=== PATIENT | female | born 1965 | race Caucasian/White ===

== ENCOUNTER 2016-11-22 22:49 | Inpatient (IN) | payer OTHER ==
[~2016-11-22] VITALS: Ht 170.2 cm; Wt 55.0 kg
[2016-11-22 22:51] VITALS: BP 156/63; PULSE 111; RESP 20; TEMP 99.4; O2SAT 95
[2016-11-23] VITALS (8 sets, daily range): BP systolic 97–145; BP diastolic 58–84; PULSE 83–116; RESP 15–23; TEMP 97.6–99.9; O2SAT 94–96
[2016-11-23] MEDS ORDERED: predniSONE 20 MG TAB PO ONE (02:00)
[2016-11-23] MEDS ORDERED: RESP: ALBUTEROL 2.5 MG/IPRATROPIUM 0.5 MG NEB (SCH) NEB ONE (02:00)
[2016-11-23] MEDS ORDERED: SODIUM CHLORIDE 0.9% FLUSH 10 ML FLUSH IVF PRN (02:00)
--- NOTE | 2016-11-23 02:11 | PD ---
HPI Chief Complaint: Cold / Flu Symptoms Time Seen by Provider: 01:50 Travel History International Travel<30 days: No Contact w/Intl Traveler<30days: No Traveled to known affect area: No History of Present Illness HPI Patient is a 51-year-old female presents emergency Department with a week's worth history of cough congestion. Patient states she is a smoker and has a history of reactive airway disease has been taking albuterol at home with minimal relief. She does state that she just came down from [place] for a family affair and came by approximate 4 days ago. Denies any fevers. She has been on antibiotics and steroids for this. No chest pain abdominal pain no nausea vomiting or rash. PFSH Past Medical History Respiratory: Yes (asthma) Past Surgical History Surgical History: No Previous Surgery Social History Tobacco Use: Yes Allergies-Medications (Allergen,Severity, Reaction): Coded Allergies: No Known Allergies (Unverified , 11/22/16) Reported Meds & Prescriptions Reported Meds & Active Scripts Active Reported Advair Diskus Inh (Fluticasone-Salmeterol Inh) 100-50 Mcg/Blist Aer 1 Puff INH BID Rinse mouth after use. Duoneb (Ipratropium-Albuterol Neb) 0.5-2.5 Mg/3 Ml Neb 1 Nebule INH Q6HR NEB Ventolin Hfa 18 GM Inh (Albuterol Sulfate) 90 Mcg/Act Aer 2 Puff INH Q4-6H PRN Review of Systems Except as stated in HPI: all other systems reviewed are Neg Physical Exam Narrative GENERAL: Well-developed well-nourished no apparent distress SKIN: Focused skin assessment warm/dry. HEAD: Atraumatic. Normocephalic. EYES: Pupils equal and round. No scleral icterus. No injection or drainage. ENT: No nasal bleeding or discharge. Mucous membranes pink and moist. NECK: Trachea midline. No JVD. CARDIOVASCULAR: Regular rhythm with tachycardia.. No murmur appreciated. RESPIRATORY: No accessory muscle use. Intrauterine extra wheezing with adequate air entry.. Breath sounds equal bilaterally. No increased work of breathing GASTROINTESTINAL: Abdomen soft, non-tender, nondistended. Hepatic and splenic margins not palpable. MUSCULOSKELETAL: No obvious deformities. No clubbing. No cyanosis. No edema. NEUROLOGICAL: Awake and alert. No obvious cranial nerve deficits. Motor grossly within normal limits. Normal speech. PSYCHIATRIC: Appropriate mood and affect; insight and judgment normal. Data Data Last Documented VS Vital Signs Date Time Temp Pulse Resp B/P Pulse Ox O2 Delivery O2 Flow Rate FiO2 11/23/16 03:00 99.9 116 16 143/84 96 Nasal Cannula 2 Orders Electrocardiogram (11/23/16 01:56) Complete Blood Count With Diff (11/23/16 01:56) Comprehensive Metabolic Panel (11/23/16 01:56) Magnesium (Mg) (11/23/16 01:56) Prothrombin Time / Inr (Pt) (11/23/16 01:56) Act Partial Throm Time (Ptt) (11/23/16 01:56) Troponin I (11/23/16 01:56) Ecg Monitoring (11/23/16 01:56) Iv Access Insert/Monitor (11/23/16 01:56) Oximetry (11/23/16 01:56) Oxygen Administration (11/23/16 01:56) Sodium Chloride 0.9% Flush (Ns Flush) (11/23/16 02:00) Ct Pulmonary Angiogram (11/23/16 01:56) Albuterol-Ipratropium Neb (Duoneb Neb) (11/23/16 02:00) Prednisone (Deltasone) (11/23/16 02:00) Iohexol 350 Inj (Omnipaque 350 Inj) (11/23/16 02:17) Lactic Acid (11/23/16 02:46) Blood Culture (11/23/16 02:46) Sodium Chlor 0.9% 1000 Ml Inj (Ns 1000 M (11/23/16 03:00) Sodium Chlor 0.9% 1000 Ml Inj (Ns 1000 M (11/23/16 03:00) Levofloxacin 750 Mg Premix Inj (Levaquin (11/23/16 03:00) Admit Order (Ed Use Only) (11/23/16 ) Labs Laboratory Tests Test 11/23/16 11/23/16 02:00 03:20 White Blood Count 16.5 TH/MM3 Red Blood Count 4.91 MIL/MM3 Hemoglobin 10.8 GM/DL Hematocrit 34.3 % Mean Corpuscular Volume 69.8 FL Mean Corpuscular Hemoglobin 22.1 PG Mean Corpuscular Hemoglobin 31.6 % Concent Red Cell Distribution Width 15.6 % Platelet Count 257 TH/MM3 Mean Platelet Volume 9.0 FL Neutrophils (%) (Auto) 80.0 % Lymphocytes (%) (Auto) 11.0 % Monocytes (%) (Auto) 7.3 % Eosinophils (%) (Auto) 1.3 % Basophils (%) (Auto) 0.4 % Neutrophils # (Auto) 13.2 TH/MM3 Lymphocytes # (Auto) 1.8 TH/MM3 Monocytes # (Auto) 1.2 TH/MM3 Eosinophils # (Auto) 0.2 TH/MM3 Basophils # (Auto) 0.1 TH/MM3 CBC Comment DIFF FINAL Differential Comment Prothrombin Time 10.0 SEC Prothromb Time International 0.9 RATIO Ratio Activated Partial 32.7 SEC Thromboplast Time Sodium Level 134 MEQ/L Potassium Level 4.0 MEQ/L Chloride Level 100 MEQ/L Carbon Dioxide Level 23.9 MEQ/L Anion Gap 10 MEQ/L Blood Urea Nitrogen 5 MG/DL Creatinine 0.43 MG/DL Estimat Glomerular Filtration 155 ML/MIN Rate Random Glucose 102 MG/DL Calcium Level 9.3 MG/DL Magnesium Level 2.1 MG/DL Total Bilirubin 1.1 MG/DL Aspartate Amino Transf 18 U/L (AST/SGOT) Alanine Aminotransferase 26 U/L (ALT/SGPT) Alkaline Phosphatase 109 U/L Troponin I LESS THAN 0.02 NG/ML Total Protein 7.9 GM/DL Albumin 3.7 GM/DL Lactic Acid Level 1.1 mmol/L MDM Medical Decision Making Medical Screen Exam Complete: Yes Emergency Medical Condition: Yes Differential Diagnosis Sepsis, pneumonia, bronchitis, COPD exacerbation, PE. Narrative Course Patient was roomed in the emergency department, she does have Sirs criteria heart rate between 115 and 125 bpm as well as white blood cell count of 16. On obtaining the patient's second Sirs criteria are white blood cell count of 16, 000 lactic acid was obtained as well as blood culture sent and she was started on Levaquin. The patient has been on azithromycin recently for possible bronchitis. Her CAT scan shows: Last [address] Angiography 11/23/16 0156 Signed Impressions: Service Date/Time: Wednesday, November 23, 2016 02:09 - CONCLUSION: 1. Negative for pulmonary embolus. 2. Multifocal airspace consolidation in the lungs as above associated with peribronchial thickening as well as distal airway disease and minimal bronchiolectasis. Differential diagnosis includes multifocal bronchopneumonia or possibly a chronic low-grade atypical mycobacterial disease. Nemesio Covarrubias MD Lactic acid is 1. Discussed with the patient diagnosis of sepsis with pneumonia and recommended inpatient treatment and she is agreeable. Discussed with Dr. Chiu. Diagnosis Primary Impression: Sepsis Qualified Code: A41.9 - Sepsis, due to unspecified organism Additional Impression: CAP (community acquired pneumonia) Admitting Information Admitting Physician Requests: Admit Condition: Stable Gigi Gordillo MD November 23, 2016 02:11
[2016-11-23] MEDS ORDERED: IOHEXOL 350 MG/ML 10 ML VIAL (for RAD DIAG) IV ONE (02:17)
[2016-11-23 02:26] LABS: AUTOMATED NEUTROPHIL # 13.2 TH/MM3 (1.8-7.7); BASOPHIL # 0.1 TH/MM3 (0-0.2); BASOPHIL % 0.4 % (0.0-2.0); EOSINOPHIL # 0.2 TH/MM3 (0-0.4); EOSINOPHIL % 1.3 % (0.0-4.0); HEMATOCRIT 34.3 % (35.0-46.0); HEMO FLAGS DIFF FINAL; LYMPHOCYTE # 1.8 TH/MM3 (1.0-4.8); MEAN CELL VOLUME 69.8 FL (80.0-100.0); MEAN CORPUSCULAR HEMOGLOBIN 22.1 PG (27.0-34.0); MEAN CORPUSCULAR HGB CONC 31.6 % (32.0-36.0); MONO % 7.3 % (0.0-8.0); PLATELET COUNT 257 TH/MM3 (150-450); RED BLOOD COUNT 4.91 MIL/MM3 (4.00-5.30); RED CELL DISTRIBUTION WIDTH 15.6 % (11.6-17.2); WHITE BLOOD COUNT 16.5 TH/MM3 (4.0-11.0)
[2016-11-23 02:37] LABS: APTT (PATIENT) 32.7 SEC (24.3-30.1); INTERNATIONAL NORMALIZED RATIO 0.9 RATIO
[2016-11-23 02:40] LABS: ALT (GPT) 26 U/L (10-53); ANION GAP 10 MEQ/L (5-15); AST (GOT) 18 U/L (15-37); BICARBONATE 23.9 MEQ/L (21.0-32.0); BLOOD UREA NITROGEN 5 MG/DL (7-18); CHLORIDE 100 MEQ/L (98-107); GLOMERULAR FILTRATION RATE 155 ML/MIN (>89); MAGNESIUM 2.1 MG/DL (1.5-2.5); SODIUM (NA) 134 MEQ/L (136-145)
--- NOTE | 2016-11-23 02:43 | RADRPT ---
EXAM DATE/TIME: 11/23/2016 02:09 [facility] COMPARISON: No previous studies available for comparison. INDICATIONS : Short of breath IV CONTRAST: 65 cc Omnipaque 350 (iohexol) IV RADIATION DOSE: 6.79 CTDIvol (mGy) MEDICAL HISTORY : Asthma. SURGICAL HISTORY : None. ENCOUNTER: Initial ACUITY: 1 week PAIN SCALE: 0/10 LOCATION: chest TECHNIQUE: Volumetric scanning of the chest was performed using a pulmonary embolism protocol MIP images were re constructed. Using automated exposure control and adjustment of the mA and/or kV according to patien t size, radiation dose was kept as low as reasonably achievable to obtain optimal diagnostic quality images. FINDINGS: No filling defects identified to suggest pulmonary embolus. There is multifocal air space consolidati on in the lungs including anterior segment right upper lobe, lateral segment right middle lobe and li ngula. There is also associated peribronchial thickening as well as some distal bronchiolectasis and distal mucoid plugging of airways. Peribronchial thickening is especially prominent in both lower lob es. No pleural or pericardial effusion. Borderline enlarged hilar and mediastinal lymph nodes. No acu te findings in the upper abdomen. CONCLUSION: 1. Negative for pulmonary embolus. 2. Multifocal airspace consolidation in the lungs as above associated with peribronchial thickening a s well as distal airway disease and minimal bronchiolectasis. Differential diagnosis includes multifo shabbir bronchopneumonia or possibly a chronic low-grade atypical mycobacterial disease. Nemesio Covarrubias MD on November 23, 2016 at 2:36 Board Certified Radiologist. This report was verified electronically.
[2016-11-23 02:44] LABS: ALKALINE PHOSPHATASE 109 U/L (45-117); TOTAL BILIRUBIN ADULT 1.1 MG/DL (0.2-1.0)
[2016-11-23] MEDS ORDERED: LEVOFLOXACIN 750 MG PREMIX INJ 150 ML IV ONE (03:00)
[2016-11-23] MEDS ORDERED: SODIUM CHLOR 0.9% 1000 ML INJ 1,000 ML IV ONE ×2 (03:00)
[2016-11-23] MEDS ORDERED: IPRASOL INH (03:52)
[2016-11-23] MEDS ORDERED: ADVA100A INH (03:52)
[2016-11-23] MEDS ORDERED: VENTAER INH (03:52)
[2016-11-23] MEDS ORDERED: NALOXONE HCL 0.4 MG/ML AMP IV PRN (04:45)
[2016-11-23] MEDS ORDERED: SODIUM CHLORIDE 0.9% FLUSH 10 ML FLUSH IV FLUSH PRN (04:45)
[2016-11-23] MEDS: SODIUM CHLOR 0.9% 1000 ML INJ 1,000 ML IV SCH ×2 (06:29→16:07)
[2016-11-23] MEDS ORDERED: ACETAMINOPHEN 325 MG TAB PO PRN (12:15)
[2016-11-23] MEDS: SODIUM CHLORIDE 0.9% FLUSH 10 ML FLUSH IV FLUSH SCH ×2 (12:27→20:39)
--- NOTE | 2016-11-23 13:35 | PD.ID.CON ---
History of Present Illness Service ID Consult Requested By Dr Bray Reason for Consult sepsis , PNA Primary Care Physician Non-Staff Diagnoses: History of Present Illness 51-year-old tobacco + female presents emergency Department with a week's worth history of cough congestion. She is visiting from [place] approximate 4 days ago. Denies any fevers, but low grade fevers docuimented in ER T amx 99.9 Her CTA is showing multifocal airspace consolidation in the lungs as above associated with peribronchial thickening as well as distal airway disease and minimal bronchiolectasis. Differential diagnosis includes multifocal bronchopneumonia or possibly a chronic low-grade atypical mycobacterial disease . She has been on antibiotics (augmentin, azithromycin) and steroids for the above problem with temporal improvement She was never diagnosed, tested or knowlinglyu exposed to TB HIV negative test > 5 yrs ago No chest pain abdominal pain no nausea vomiting or rash. + some weight loss + productive cough, yellow sputum, no hemoptysis Review of Systems Constitutional: COMPLAINS OF: Fever, Weight loss, Night Sweats Respiratory: COMPLAINS OF: Cough, Sputum production, Shortness of breath Except as stated in HPI: all other systems reviewed are Neg Past Family Social History Allergies: Coded Allergies: No Known Allergies (Unverified , 11/22/16) Past Medical History COPD Asthme recurrent PNAs Past Surgical History none Active Ordered Medications Medications where reviewed in EMR Antibiotics Include: levaquine Family History lung Ca Social History + Tobacco. 1 PPD + occ ETOH. No Illicit Drugs. no foreign travel Physical Exam Vital Signs Vital Signs Date Time Temp Pulse Resp B/P Pulse Ox O2 Delivery O2 Flow Rate FiO2 11/23/16 11:18 99.2 86 15 110/61 95 11/23/16 07:37 99.9 91 15 126/58 96 11/23/16 06:31 97.6 97 22 110/72 96 11/23/16 06:00 80 20 145/77 95 Nasal Cannula 2 11/23/16 03:00 99.9 116 16 143/84 96 Nasal Cannula 2 11/23/16 03:00 96 Nasal Cannula 2.00 11/23/16 02:00 95 Nasal Cannula 2 11/23/16 01:00 108 24 95 Room Air 11/22/16 22:51 99.4 111 20 156/63 95 Room Air Physical Exam CONSTITUTIONAL/GENERAL: This is an adequately nourished patient, in no apparent distress. TUBES/LINES/DRAINS: SKIN: No jaundice, rashes, or lesions.Skin temperature appropriate. Not diaphoretic. HEAD: Atraumatic. Normocephalic. EYES: Pupils equal and round and reactive. Extraocular motions intact. No scleral icterus. No injection or drainage. Fundi not examined. ENT: Hearing grossly normal. Nose without bleeding or purulent drainage. Oral mucosae without visible erythema, exudates, masses, or lesions. NECK: Trachea midline. Supple, nontender. CARDIOVASCULAR: Regular rate and rhythm without murmurs, gallops, or rubs. No JVD. Peripheral pulses symmetric. RESPIRATORY/CHEST: Symmetric, unlabored respirations. Clear to auscultation. Breath sounds equal bilaterally. No wheezes, rales, or rhonchi. GASTROINTESTINAL: Abdomen soft, non-tender, nondistended. No hepato-splenomegaly , or palpable masses. No guarding. Bowel sounds present. GENITOURINARY: Without palpable bladder distension MUSCULOSKELETAL: Extremities without clubbing, cyanosis, or edema. No joint tenderness or effusion noted. No calf tenderness. No mottling or clubbing. LYMPHATICS: No palpable cervical axillae or supraclavicular adenopathy. NEUROLOGICAL: Awake and alert. Motor and sensory grossly within normal limits. Follows commands. Normal speech Moves all extremities. PSYCHIATRIC: No obvious anxiety/depression. no apparent hallucinations or other psychotic thought process. Laboratory Laboratory Tests Test 11/23/16 11/23/16 02:00 03:20 White Blood Count 16.5 Red Blood Count 4.91 Hemoglobin 10.8 Hematocrit 34.3 Mean Corpuscular Volume 69.8 Mean Corpuscular Hemoglobin 22.1 Mean Corpuscular Hemoglobin 31.6 Concent Red Cell Distribution Width 15.6 Platelet Count 257 Mean Platelet Volume 9.0 Neutrophils (%) (Auto) 80.0 Lymphocytes (%) (Auto) 11.0 Monocytes (%) (Auto) 7.3 Eosinophils (%) (Auto) 1.3 Basophils (%) (Auto) 0.4 Neutrophils # (Auto) 13.2 Lymphocytes # (Auto) 1.8 Monocytes # (Auto) 1.2 Eosinophils # (Auto) 0.2 Basophils # (Auto) 0.1 CBC Comment DIFF FINAL Differential Comment Prothrombin Time 10.0 Prothromb Time International 0.9 Ratio Activated Partial 32.7 Thromboplast Time Sodium Level 134 Potassium Level 4.0 Chloride Level 100 Carbon Dioxide Level 23.9 Anion Gap 10 Blood Urea Nitrogen 5 Creatinine 0.43 Estimat Glomerular Filtration 155 Rate Random Glucose 102 Calcium Level 9.3 Magnesium Level 2.1 Total Bilirubin 1.1 Aspartate Amino Transf 18 (AST/SGOT) Alanine Aminotransferase 26 (ALT/SGPT) Alkaline Phosphatase 109 Troponin I LESS THAN 0.02 Total Protein 7.9 Albumin 3.7 Lactic Acid Level 1.1 Date/Time Procedure Status Source Growth 11/23/16 03:20 Aerobic Blood Culture Received Blood Peripheral Pending 11/23/16 03:20 Anaerobic Blood Culture Received Blood Peripheral Pending Result Diagram: 11/23/16 0200 11/23/[address] Angiography 11/23/16 0156 Signed Impressions: Service Date/Time: Wednesday, November 23, 2016 02:09 - CONCLUSION: 1. Negative for pulmonary embolus. 2. Multifocal airspace consolidation in the lungs as above associated with peribronchial thickening as well as distal airway disease and minimal bronchiolectasis. Differential diagnosis includes multifocal bronchopneumonia or possibly a chronic low-grade atypical mycobacterial disease. Nemesio Covarrubias MD Assessment and Plan Assessment and Plan Suspected atypical mycobacterial PNA in a pt with heavy tobacco use Recurrent PNAs with temporaral improvement on azithromycin Low risk factors fro TB exposure by history Hypochromal anemia - cont levaquine - routinr/AFB sputum clx dw radiologist Dr Diaz: no findings sugg of TB, but possibly PNA, including atypical NTM, ? cancer Discussed Condition With Juliet Browning MD November 23, 2016 13:35
--- NOTE | 2016-11-23 14:18 | HHI.HP ---
HPI Service [facility] Primary Care Physician Non-Staff Admission Diagnosis Sepsis, PNA Diagnoses: Chief Complaint: shortness of breath, cough Travel History International Travel<30 Days: No Contact w/Intl Traveler <30 Da: No Traveled to Known Affected Are: No Sepsis Criteria SIRS Criteria (2 or more): Heart rate over 90, WBC > 87274, < 4000 or > 10% bands Sepsis Criteria (SIRS+source): Infect source susp/known Criteria Outcome: Meets sepsis criteria History of Present Illness Written by Kimberley Conner, acting as scribe for Dr. Davila on 11/23/16 at 14: 18. 51-year-old female with history of COPD and thalassemia minor presents with a 5 day history of shortness of breath and cough. The patient reports she recently travelled from [place] to [place] this past Saturday 11/18 then shortly after her arrival she developed shortness of breath and cough productive of bright green sputum. She also reports subjective fevers and chills. She's been using her Ventolin inhaler and nebulizer without much relief. She has also been without her Advair since Saturday. She reports intractable cough and has now developed a sore throat secondary to the cough. The patient reports some unintentional weight loss with 40lbs over the past 2 years. Denies any chest pain, leg pain or swelling. She reports occasional diarrhea and stool incontinence during coughing fits, otherwise denies any abdominal pain, dysuria, or nausea/ vomiting. She is post-menopausal for 1 year now. She denies any contact with anyone known with TB and denies any sick contacts. has a chronic cough secondary to emphysema/COPD. PCP is Dr. Hall in [place], [place]. She also sees a civil cadd technician in [place]. Review of Systems Except as stated in HPI: all other systems reviewed are Neg Past Family Social History Past Medical History Thalassemia minor COPD Past Surgical History None. Reported Medications Goody's powder once every few days Advair Ventolin Albuterol nebulizer Allergies: Coded Allergies: No Known Allergies (Unverified , 11/22/16) Active Ordered Medications Current Medications Medications (Trade) Dose Ordered Sig/Maren Route Start Time Stop Time Status Last Admin (NS 1000 ml Inj) 1,000 ml @ 100 mls/hr Q10H IV 11/23/16 04:34 11/23/16 06:29 (NS Flush) 2 ml UNSCH PRN IV FLUSH 11/23/16 04:45 (NS Flush) 2 ml BID IV FLUSH 11/23/16 09:00 11/23/16 12:27 Naloxone HCl 0.4 mg 0.4 mg UNSCH PRN IV 11/23/16 04:45 (Levaquin 750 Mg Premix Inj) 150 ml @ 100 mls/hr Q24H IV 11/24/16 03:00 (Tylenol) 650 mg Q6H PRN PO 11/23/16 12:15 11/23/16 12:23 ([place]y [place] 5-325 Mg) 1 tab Q4H PRN PO 11/23/16 12:15 Family History Father with diabetes, hypertension, and heart disease (first [place] in his 40s), in his 60s Mother fairly healthy, living Social History Smokes tobacco 1/2 to 1 PPD since she was a teenager (stopped for 10years previously) Drinks alcohol, approximately 40ounces of beer daily (~4cans) Denies any illicit drug use Employed - Sprays chemicals and fertilizers on lawns Physical Exam Vital Signs Vital Signs Date Time Temp Pulse Resp B/P Pulse Ox O2 Delivery O2 Flow Rate FiO2 11/23/16 11:18 99.2 86 15 110/61 95 11/23/16 07:37 99.9 91 15 126/58 96 11/23/16 06:31 97.6 97 22 110/72 96 11/23/16 06:00 80 20 145/77 95 Nasal Cannula 2 11/23/16 03:00 99.9 116 16 143/84 96 Nasal Cannula 2 11/23/16 03:00 96 Nasal Cannula 2.00 11/23/16 02:00 95 Nasal Cannula 2 11/23/16 01:00 108 24 95 Room Air 11/22/16 22:51 99.4 111 20 156/63 95 Room Air Physical Exam GENERAL: Well-nourished, well-developed middle aged female patient in NAD. SKIN: Warm and dry. No rash. HEAD: Normocephalic. Atraumatic. EYES: Pupils equal and round. No scleral icterus. No injection or drainage. ENT: No nasal bleeding or discharge. Mucous membranes pink and moist. Oropharynx clear, no tonsillar exudate/edema. NECK: Supple. Trachea midline. No palpable lymphadenopathy. CARDIOVASCULAR: Regular rate and rhythm. S1, S2 noted. No murmur appreciated. RESPIRATORY: No accessory muscle use. Clear to auscultation. Breath sounds equal bilaterally. GASTROINTESTINAL: Abdomen soft, non-tender, nondistended. Normoactive bowel sounds x4. MUSCULOSKELETAL: No obvious deformities. Extremities without clubbing, cyanosis , or edema. NEUROLOGICAL: Awake and alert. No obvious cranial nerve deficits. Motor grossly within normal limits. Normal speech. PSYCHIATRIC: Appropriate mood and affect; insight and judgment normal. Laboratory Laboratory Tests Test 11/23/16 11/23/16 02:00 03:20 White Blood Count 16.5 Red Blood Count 4.91 Hemoglobin 10.8 Hematocrit 34.3 Mean Corpuscular Volume 69.8 Mean Corpuscular Hemoglobin 22.1 Mean Corpuscular Hemoglobin 31.6 Concent Red Cell Distribution Width 15.6 Platelet Count 257 Mean Platelet Volume 9.0 Neutrophils (%) (Auto) 80.0 Lymphocytes (%) (Auto) 11.0 Monocytes (%) (Auto) 7.3 Eosinophils (%) (Auto) 1.3 Basophils (%) (Auto) 0.4 Neutrophils # (Auto) 13.2 Lymphocytes # (Auto) 1.8 Monocytes # (Auto) 1.2 Eosinophils # (Auto) 0.2 Basophils # (Auto) 0.1 CBC Comment DIFF FINAL Differential Comment Prothrombin Time 10.0 Prothromb Time International 0.9 Ratio Activated Partial 32.7 Thromboplast Time Sodium Level 134 Potassium Level 4.0 Chloride Level 100 Carbon Dioxide Level 23.9 Anion Gap 10 Blood Urea Nitrogen 5 Creatinine 0.43 Estimat Glomerular Filtration 155 Rate Random Glucose 102 Calcium Level 9.3 Magnesium Level 2.1 Total Bilirubin 1.1 Aspartate Amino Transf 18 (AST/SGOT) Alanine Aminotransferase 26 (ALT/SGPT) Alkaline Phosphatase 109 Troponin I LESS THAN 0.02 Total Protein 7.9 Albumin 3.7 Lactic Acid Level 1.1 Date/Time Procedure Status Source Growth 11/23/16 03:20 Aerobic Blood Culture Received Blood Peripheral Pending 11/23/16 03:20 Anaerobic Blood Culture Received Blood Peripheral Pending Result Diagram: 11/23/16 0200 11/23/16 0200 Imaging Current Medications Medications (Trade) Dose Ordered Sig/Maren Route Start Time Stop Time Status Last Admin (NS 1000 ml Inj) 1,000 ml @ 100 mls/hr Q10H IV 11/23/16 04:34 11/23/16 06:29 (NS Flush) 2 ml UNSCH PRN IV FLUSH 11/23/16 04:45 (NS Flush) 2 ml BID IV FLUSH 11/23/16 09:00 11/23/16 12:27 Naloxone HCl 0.4 mg 0.4 mg UNSCH PRN IV 11/23/16 04:45 (Levaquin 750 Mg Premix Inj) 150 ml @ 100 mls/hr Q24H IV 11/24/16 03:00 (Tylenol) 650 mg Q6H PRN PO 11/23/16 12:15 11/23/16 12:23 ([place]y [place] 5-325 Mg) 1 tab Q4H PRN PO 11/23/16 12:15 Assessment and Plan Problem List: (1) CAP (community acquired pneumonia) ICD Code: J18.9 Status: Acute (2) Sepsis ICD Code: A41.9 Status: Acute Assessment and Plan 51-year-old female with history of COPD and thalassemia minor presents with a 5 day history of shortness of breath and cough. PCP is Dr. Hall in [place], [place]. She also sees a civil cadd technician in [place]. Sepsis with Atypical Community Acquired Pneumonia: WBC 16.5K, tachycardia HR 116 , febrile Tmax 99.9. Lactic acid wnl. CT-PA images reviewed, negative for PE, shows multifocal airspace consolidation in lungs switched with peribronchial thickening and distal airway disease with minimal bronchiolectasis; differential diagnosis includes multifocal bronchopneumonia or possibly a chronic low-grade atypical mycobacterial disease. -Continue IV Levaquin -Consult infectious disease, discussed with Dr. Green -check sputum/AFB culture -blood cultures pending -incentive spirometry, acapella -Robitussin prn cough -Duonebs q6h -monitor CBC COPD: chronic, not in exacerbation -continue duonebs -restart patient's Advair bid Microcytic Anemia with Thalassemia Minor: chronic, Hgb 10.8, stable. -monitor CBC, no active signs of bleeding DVT Prophylaxis: teds/SCDs Code Status Full Code Discussed Condition With Patient, Patient's significant other This note was transcribed by scribe [Kimberley Conner]. I, Dr. Arvind Davila personally performed the history, physical exam, and medical decision making; and confirmed the accuracy of the information in the transcribed note. Authenticated by Dr. Arvind Davila on 11/24/16 at 12:22. Physician Certification 2 Midnight Certification Type: Admission for Inpatient Services Order for Inpatient Services The services are ordered in accordance with Medicare regulations or non- Medicare payer requirements, as applicable. In the case of services not specified as inpatient-only, they are appropriately provided as inpatient services in accordance with the 2-midnight benchmark. Estimated LOS (days): 3 days is the estimated time the patient will need to remain in the hospital, assuming treatment plan goals are met and no additional complications. Post-Hospital Plan: Home Problem Qualifiers (1) Sepsis: Qualified Code: A41.9 - Sepsis, due to unspecified organism Kimberley Conner PA-C November 23, 2016 14:18 Arvind Davila MD November 24, 2016 12:23
[2016-11-23] MEDS ORDERED: guaiFENesin/DEXTROMETHORPHAN 200 MG/20 MG/10 ML CUP PO PRN (15:00)
[2016-11-23] MEDS: ACETAMINOPHEN/HYDROcodone 325 MG/5 MG TAB PO PRN (16:05)
[2016-11-23 19:12] LABS: AUTOMATED NEUTROPHIL # 8.5 TH/MM3 (1.8-7.7); BASOPHIL # 0.1 TH/MM3 (0-0.2); BASOPHIL % 0.5 % (0.0-2.0); EOSINOPHIL # 0.4 TH/MM3 (0-0.4); EOSINOPHIL % 3.2 % (0.0-4.0); HEMATOCRIT 30.1 % (35.0-46.0); HEMO FLAGS DIFF FINAL; LYMPH % 13.6 % (9.0-44.0); LYMPHOCYTE # 1.5 TH/MM3 (1.0-4.8); MEAN CELL VOLUME 71.2 FL (80.0-100.0); MEAN CORPUSCULAR HGB CONC 30.9 % (32.0-36.0); MONO % 6.4 % (0.0-8.0); NEUT % 76.3 % (16.0-70.0); PLATELET COUNT 228 TH/MM3 (150-450); RED BLOOD COUNT 4.22 MIL/MM3 (4.00-5.30); RED CELL DISTRIBUTION WIDTH 15.8 % (11.6-17.2); WHITE BLOOD COUNT 11.1 TH/MM3 (4.0-11.0)
[2016-11-23 19:42] LABS: POTASSIUM 3.2 MEQ/L (3.5-5.1)
--- NOTE | 2016-11-23 20:58 | EKG ---
Date Performed: 11/23/2016 Time Performed: 04:59:54 PTAGE: 51 years EKG: SINUS TACHYCARDIA MODERATE ST DEPRESSION ABNORMAL ECG NO PREVIOUS TRACING DOCTOR: Rudolph Palm Interpretating Date/Time 11/23/2016 20:56:53
[2016-11-23] MEDS: RESP: ALBUTEROL 2.5 MG/IPRATROPIUM 0.5 MG NEB (SCH) NEB (21:09)
[2016-11-24] VITALS (10 sets, daily range): BP systolic 102–134; BP diastolic 59–74; PULSE 74–97; RESP 17–20; TEMP 97.2–99.8; O2SAT 92–96
[2016-11-24] MEDS: SODIUM CHLOR 0.9% 1000 ML INJ 1,000 ML IV SCH (00:39)
[2016-11-24] MEDS: LEVOFLOXACIN 750 MG PREMIX INJ 150 ML IV SCH (02:35)
[2016-11-24] MEDS: ACETAMINOPHEN/HYDROcodone 325 MG/5 MG TAB PO PRN ×3 (02:35→21:27)
[2016-11-24] MEDS ORDERED: FLUMAZENIL 0.5 MG/5 ML VIAL IV PUSH PRN (06:15)
[2016-11-24] MEDS ORDERED: LORazepam 2 MG TAB PO PRN (06:15)
[2016-11-24] MEDS ORDERED: HALOPERIDOL LACTATE 5 MG/ML AMP IM PRN (06:15)
[2016-11-24] MEDS ORDERED: LORazepam 2 MG/ML VIAL IV PUSH PRN ×4 (06:15)
[2016-11-24] MEDS ORDERED: LORazepam 1 MG TAB PO PRN (06:15)
[2016-11-24] MEDS: RESP: ALBUTEROL 2.5 MG/IPRATROPIUM 0.5 MG NEB (SCH) NEB ×3 (07:30→21:52)
[2016-11-24 08:58] LABS: AUTOMATED NEUTROPHIL # 6.8 TH/MM3 (1.8-7.7); BASOPHIL # 0.1 TH/MM3 (0-0.2); BASOPHIL % 0.5 % (0.0-2.0); EOSINOPHIL # 0.4 TH/MM3 (0-0.4); EOSINOPHIL % 3.9 % (0.0-4.0); HEMATOCRIT 31.5 % (35.0-46.0); HEMO FLAGS DIFF FINAL; LYMPH % 18.1 % (9.0-44.0); LYMPHOCYTE # 1.8 TH/MM3 (1.0-4.8); MEAN CELL VOLUME 71.2 FL (80.0-100.0); MEAN CORPUSCULAR HEMOGLOBIN 22.5 PG (27.0-34.0); MEAN CORPUSCULAR HGB CONC 31.7 % (32.0-36.0); MONO % 9.6 % (0.0-8.0); NEUT % 67.9 % (16.0-70.0); PLATELET COUNT 240 TH/MM3 (150-450); RED BLOOD COUNT 4.42 MIL/MM3 (4.00-5.30); RED CELL DISTRIBUTION WIDTH 15.7 % (11.6-17.2); WHITE BLOOD COUNT 10.1 TH/MM3 (4.0-11.0)
[2016-11-24] MEDS: NICOTINE 21 MG/24 HR PATCH T-DERMAL SCH (09:00)
[2016-11-24] MEDS: REMOVE OLD PATCH T-DERMAL SCH (09:00)
[2016-11-24] MEDS: SODIUM CHLORIDE 0.9% FLUSH 10 ML FLUSH IV FLUSH SCH ×2 (09:00→21:00)
[2016-11-24] MEDS: THIAMINE HCL 100 MG TAB PO SCH (09:05)
[2016-11-24] MEDS: FOLIC ACID 1 MG TAB PO SCH (09:06)
[2016-11-24] MEDS: MULTIVITAMINS/MINERALS THERAPEUTIC TAB PO SCH (09:06)
[2016-11-24] MEDS: BUDESONIDE-FORMOTEROL 80/4.5 MCG INHALER INH SCH ×3 (09:07→21:29)
[2016-11-24 09:25] LABS: BICARBONATE 27.4 MEQ/L (21.0-32.0); POTASSIUM 3.6 MEQ/L (3.5-5.1)
--- NOTE | 2016-11-24 13:48 | HHI.PR ---
Subjective Remarks F/U sepsis and pneumonia. States having body aches from coughing but overall better. Denies shortness of breath but still having wheezes. Discussed with RN and respiratory therapist Objective Vitals Vital Signs Date Time Temp Pulse Resp B/P Pulse Ox O2 Delivery O2 Flow Rate FiO2 11/24/16 12:00 97.2 74 19 134/64 96 11/24/16 11:55 99.8 93 19 125/74 95 11/24/16 08:18 98.4 85 19 102/63 92 11/24/16 07:30 94 11/24/16 03:51 99.0 80 19 102/68 95 11/23/16 22:56 98.6 84 19 97/74 95 11/23/16 19:34 99.2 94 19 118/67 95 11/23/16 15:38 98.7 83 23 115/71 94 Result Diagram: 11/24/16 0825 11/24/16 [address] Angiography 11/23/16 0156 Signed Impressions: Service Date/Time: Wednesday, November 23, 2016 02:09 - CONCLUSION: 1. Negative for pulmonary embolus. 2. Multifocal airspace consolidation in the lungs as above associated with peribronchial thickening as well as distal airway disease and minimal bronchiolectasis. Differential diagnosis includes multifocal bronchopneumonia or possibly a chronic low-grade atypical mycobacterial disease. Nemesio Covarrubias MD Objective Remarks GENERAL: Well-nourished, well-developed middle aged female patient in [facility]. SKIN: Warm and dry. No rash. HEAD: Normocephalic. Atraumatic. EYES: Pupils equal and round. No scleral icterus. No injection or drainage. ENT: No nasal bleeding or discharge. Mucous membranes pink and moist. Oropharynx clear, no tonsillar exudate/edema. NECK: Supple. Trachea midline. No palpable lymphadenopathy. CARDIOVASCULAR: Regular rate and rhythm. S1, S2 noted. No murmur appreciated. RESPIRATORY: No accessory muscle use. Mild expiratory wheezes. Breath sounds equal bilaterally. GASTROINTESTINAL: Abdomen soft, non-tender, nondistended. Normoactive bowel sounds x4. MUSCULOSKELETAL: No obvious deformities. Extremities without clubbing, cyanosis , or edema. NEUROLOGICAL: Awake and alert. No obvious cranial nerve deficits. Motor grossly within normal limits. Normal speech. PSYCHIATRIC: Appropriate mood and affect; insight and judgment normal. Procedures Non- A/P Problem List: (1) CAP (community acquired pneumonia) ICD Code: J18.9 Status: Acute (2) Sepsis ICD Code: A41.9 Status: Acute Assessment and Plan 51-year-old female with history of COPD and thalassemia minor presents with a 5 day history of shortness of breath and cough. PCP is Dr. Hall in [place], [place]. She also sees a metrologist in [place]. Sepsis with Atypical Community Acquired Pneumonia: WBC 16.5K, tachycardia HR 116 , febrile Tmax 99.9. Lactic acid wnl. CT-PA images reviewed, negative for PE, shows multifocal airspace consolidation in lungs switched with peribronchial thickening and distal airway disease with minimal bronchiolectasis; differential diagnosis includes multifocal bronchopneumonia or possibly a chronic low-grade atypical mycobacterial disease. Clinically improving -Continue IV Levaquin -Consult infectious disease, discussed with Dr. Green -check sputum culture with normal ninfa/AFB culture pending -blood cultures pending -incentive spirometry, acapella -Robitussin prn cough -Duonebs q6h -monitor CBC COPD: chronic, not in exacerbation -continue duonebs -restart patient's Advair bid Microcytic Anemia with Thalassemia Minor: chronic, Hgb 10.8, stable. -monitor CBC, no active signs of bleeding Alcohol and tobacco abuse. CIWA protocol and nicotinic patch. Monitor for DVT. DVT Prophylaxis: teds/SCDs Discharge Planning Not ready for discharge Problem Qualifiers (1) Sepsis: Qualified Code: A41.9 - Sepsis, due to unspecified organism Sukhdeep Piña MD November 24, 2016 13:48
[2016-11-25 00:45] VITALS: BP 128/69; PULSE 67; RESP 18; TEMP 98.8; O2SAT 96
[2016-11-25] MEDS: LEVOFLOXACIN 750 MG PREMIX INJ 150 ML IV SCH (03:13)
[2016-11-25 05:00] VITALS: BP 105/58; PULSE 79; RESP 18; TEMP 97.2; O2SAT 97
[2016-11-25 08:00] VITALS: BP 110/56; PULSE 73; PULSE 82; RESP 17; TEMP 97.7; O2SAT 94
[2016-11-25] MEDS: SODIUM CHLORIDE 0.9% FLUSH 10 ML FLUSH IV FLUSH SCH (08:39)
[2016-11-25] MEDS: THIAMINE HCL 100 MG TAB PO SCH (08:39)
[2016-11-25] MEDS: MULTIVITAMINS/MINERALS THERAPEUTIC TAB PO SCH (08:39)
[2016-11-25] MEDS: FOLIC ACID 1 MG TAB PO SCH (08:39)
[2016-11-25] MEDS: REMOVE OLD PATCH T-DERMAL SCH (08:53)
[2016-11-25] MEDS: NICOTINE 21 MG/24 HR PATCH T-DERMAL SCH (08:53)
[2016-11-25] MEDS: BUDESONIDE-FORMOTEROL 80/4.5 MCG INHALER INH SCH (09:00)
[2016-11-25] MEDS: RESP: ALBUTEROL 2.5 MG/IPRATROPIUM 0.5 MG NEB (SCH) NEB (09:22)
[2016-11-25 09:27] VITALS: O2SAT 96
[2016-11-25] MEDS ORDERED: ROBIDM5S PO (11:12)
[2016-11-25] MEDS ORDERED: LEVO750T33 PO (11:14)
[2016-11-25] MEDS ORDERED: VITA100T2 PO (11:14)
--- NOTE | 2016-11-25 11:15 | HHI.DCPOC ---
Discharge Care Plan Diagnosis: (1) CAP (community acquired pneumonia) (2) Sepsis Your Health Problems Are: Difficulty with ADL Exercise Tolerance Goals to Promote Your Health * To prevent worsening of your condition and complications * To maintain your health at the optimal level Directions to Meet Your Goals Take your medications as prescribed Follow your dietary instruction Follow activity as directed Keep your appointments as scheduled Take your immunizations and boosters as scheduled If your symptoms worsen call your PCP, if no PCP go to Urgent Care Center or Emergency Room Smoking is Dangerous to Your Health. Avoid second hand smoke Call the 24-hour hour crisis hotline for domestic abuse at Sukhdeep Piña MD November 25, 2016 11:15
--- NOTE | 2016-11-25 11:17 | HHI.DS ---
Discharge Summary Admission Date November 23, 2016 at 07:49 Discharge Date: November 25, 2016 Admitting Diagnosis Sepsis, PNA (1) CAP (community acquired pneumonia) ICD Code: J18.9 Diagnosis: Principal (2) Sepsis ICD Code: A41.9 Diagnosis: Principal Procedures Non- Brief History - From Admission Written by Kimberley Conner, acting as scribe for Dr. Davila on 11/23/16 at 14: 18. 51-year-old female with history of COPD and thalassemia minor presents with a 5 day history of shortness of breath and cough. The patient reports she recently travelled from [place] to [place] this past Saturday 11/18 then shortly after her arrival she developed shortness of breath and cough productive of bright green sputum. She also reports subjective fevers and chills. She's been using her Ventolin inhaler and nebulizer without much relief. She has also been without her Advair since Saturday. She reports intractable cough and has now developed a sore throat secondary to the cough. The patient reports some unintentional weight loss with 40lbs over the past 2 years. Denies any chest pain, leg pain or swelling. She reports occasional diarrhea and stool incontinence during coughing fits, otherwise denies any abdominal pain, dysuria, or nausea/ vomiting. She is post-menopausal for 1 year now. She denies any contact with anyone known with TB and denies any sick contacts. has a chronic cough secondary to emphysema/COPD. PCP is Dr. Hall in [place], [place]. She also sees a basket bottom machine operator in [place]. CBC/BMP: 11/24/16 0825 11/24/16 0825 Significant Findings Laboratory Tests Test 11/23/16 11/23/16 11/23/16 11/24/16 02:00 18:45 18:51 08:25 White Blood Count 16.5 TH/MM3 11.1 TH/MM3 (4.0-11.0) (4.0-11.0) Hemoglobin 10.8 GM/DL 9.3 GM/DL 10.0 GM/DL (11.6-15.3) (11.6-15.3) (11.6-15.3) Hematocrit 34.3 % 30.1 % 31.5 % (35.0-46.0) (35.0-46.0) (35.0-46.0) Mean Corpuscular Volume 69.8 FL 71.2 FL 71.2 FL (80.0-100.0) (80.0-100.0) (80.0-100.0) Mean Corpuscular Hemoglobin 22.1 PG 22.0 PG 22.5 PG (27.0-34.0) (27.0-34.0) (27.0-34.0) Mean Corpuscular Hemoglobin 31.6 % 30.9 % 31.7 % Concent (32.0-36.0) (32.0-36.0) (32.0-36.0) Neutrophils (%) (Auto) 80.0 % 76.3 % (16.0-70.0) (16.0-70.0) Neutrophils # (Auto) 13.2 TH/MM3 8.5 TH/MM3 (1.8-7.7) (1.8-7.7) Monocytes # (Auto) 1.2 TH/MM3 1.0 TH/MM3 (0-0.9) (0-0.9) Activated Partial 32.7 SEC Thromboplast Time (24.3-30.1) Sodium Level 134 MEQ/L (136-145) Blood Urea Nitrogen 5 MG/DL (7-18) 4 MG/DL (7-18) 2 MG/DL (7-18) Creatinine 0.43 MG/DL 0.44 MG/DL 0.38 MG/DL (0.50-1.00) (0.50-1.00) (0.50-1.00) Total Bilirubin 1.1 MG/DL (0.2-1.0) Troponin I LESS THAN 0.02 NG/ML (0.02-0.05) Potassium Level 3.2 MEQ/L (3.5-5.1) Random Glucose 173 MG/DL (74-106) Monocytes (%) (Auto) 9.6 % (0.0-8.0) Imaging Last Impressions CT Angiography 11/23/16 0156 Signed Impressions: Service Date/Time: Wednesday, November 23, 2016 02:09 - CONCLUSION: 1. Negative for pulmonary embolus. 2. Multifocal airspace consolidation in the lungs as above associated with peribronchial thickening as well as distal airway disease and minimal bronchiolectasis. Differential diagnosis includes multifocal bronchopneumonia or possibly a chronic low-grade atypical mycobacterial disease. Nemesio Covarrubias MD PE at Discharge GENERAL: Well-nourished, well-developed middle aged female patient in [facility]. SKIN: Warm and dry. No rash. HEAD: Normocephalic. Atraumatic. EYES: Pupils equal and round. No scleral icterus. No injection or drainage. ENT: No nasal bleeding or discharge. Mucous membranes pink and moist. Oropharynx clear, no tonsillar exudate/edema. NECK: Supple. Trachea midline. No palpable lymphadenopathy. CARDIOVASCULAR: Regular rate and rhythm. S1, S2 noted. No murmur appreciated. RESPIRATORY: No accessory muscle use. Mild expiratory wheezes. Breath sounds equal bilaterally. GASTROINTESTINAL: Abdomen soft, non-tender, nondistended. Normoactive bowel sounds x4. MUSCULOSKELETAL: No obvious deformities. Extremities without clubbing, cyanosis , or edema. NEUROLOGICAL: Awake and alert. No obvious cranial nerve deficits. Motor grossly within normal limits. Normal speech. PSYCHIATRIC: Appropriate mood and affect; insight and judgment normal. Hospital Course 51-year-old female with history of COPD and thalassemia minor presents with a 5 day history of shortness of breath and cough. PCP is Dr. Hall in [place], [place]. She also sees a basket bottom machine operator in [place]. Sepsis with Atypical Community Acquired Pneumonia: WBC 16.5K, tachycardia HR 116 , febrile Tmax 99.9. Lactic acid wnl. CT-PA images reviewed, negative for PE, shows multifocal airspace consolidation in lungs switched with peribronchial thickening and distal airway disease with minimal bronchiolectasis; differential diagnosis includes multifocal bronchopneumonia or possibly a chronic low-grade atypical mycobacterial disease. Clinically improving -Continue IV Levaquin -Consult infectious disease, discussed with Dr. Green -check sputum culture with normal ninfa/AFB culture pending -blood cultures pending -incentive spirometry, acapella -Robitussin prn cough -Duonebs q6h -monitor CBC COPD: chronic, not in exacerbation -continue duonebs -restart patient's Advair bid Microcytic Anemia with Thalassemia Minor: chronic, Hgb 10.8, stable. -monitor CBC, no active signs of bleeding Alcohol and tobacco abuse. CIWA protocol and nicotinic patch. Monitor for DVT. DVT Prophylaxis: teds/SCDs Pt Condition on Discharge: Stable Discharge Disposition: Discharge Home Discharge Time: > 30 minutes Discharge Instructions DIET: Follow Instructions for: As Tolerated, No Restrictions Activities you can perform: Regular-No Restrictions Activities to Avoid: Driving Follow up Referrals: PCP Follow-up - 1 Week New Orders: X-RAY CHEST PA & LAT - 6 Weeks New Medications: Levofloxacin (Levofloxacin) 750 Mg Tab 750 MG PO DAILY Infection #7 Ref 0 TAB Guaifenesin/Dextromethorphan Liq (Guaifenesin-Dm Liq) 100-10 Mg/5 Ml Syrp 10 ML PO Q4H PRN COUGH #180 ML Thiamine (Vitamin B-1) 100 Mg Tab 100 MG PO DAILY Alcohol Detox #30 TAB Continued Medications: Albuterol 18 GM Inh (Ventolin Hfa 18 GM Inh) 90 Mcg/Act Aer 2 PUFF INH Q4-6H PRN SHORTNESS OF BREATH #1 Ref 0 INHALER Fluticasone-Salmeterol Inh (Advair Diskus Inh) 100-50 Mcg/Blist Aer 1 PUFF INH BID Rinse mouth after use. Asthma Management #1 Ref 0 INHALER Ipratropium-Albuterol Neb (Duoneb) 0.5-2.5 Mg/3 Ml Neb 1 NEBULE INH Q6HR NEB Breathing Treatment #120 Ref 0 NEBULE Sukhdeep Piña MD November 25, 2016 11:17
== END 2016-11-25 12:30 | disposition home or self-care (01) | DRG 871 ==
LOC: NEPE 22:49 → NEDA 11-23 04:35 → INTOOBSV 11-23 04:35 → NEPFCDU 11-23 06:02 → OBSVTOIN 11-23 07:49 → NEPGCP 11-23 21:09 → N05B 11-24 12:44
PROVIDERS: ADMIT Internal Medicine; ATTEND Internal Medicine
DX: A41.9 Sepsis, unspecified organism (principal); J18.9 Pneumonia, unspecified organism; J44.0 Chronic obstructive pulmonary disease with (acute) lower respiratory infection; D56.3 Thalassemia minor; D50.9 Iron deficiency anemia, unspecified; F10.10 Alcohol abuse, uncomplicated; F17.210 Nicotine dependence, cigarettes, uncomplicated; Y90.9 Presence of alcohol in blood, level not specified
CPT/HCPCS: 71275; 80048; 80053; 82948; 83605; 83735; 84443; 84484; 85025; 85610; 85730; 87015; 87040; 87070; 87116; 87205; 87206; 93005; 94150; 94640; 94664; 94667; 94668; 96365; J1956; J7030; Q9967